=== PATIENT | female | born 1970 | race Caucasian/White ===

== ENCOUNTER 2017-09-23 10:43 | Emergency (ER) | payer BC, OTHER ==
[~2017-09-23] VITALS: Ht 170.2 cm; Wt 92.5 kg
[2017-09-23 10:52] VITALS: TEMP 36.7; Ht 170.2 cm; Wt 92.5 kg
[2017-09-23] MEDS ORDERED: CHOL1000 PO (11:05)
[2017-09-23] MEDS ORDERED: MINO100C22 PO (11:05)
[2017-09-23] MEDS ORDERED: PRLSR20 PO (11:05)
[2017-09-23] MEDS ORDERED: SERT-234 PO (11:05)
[2017-09-23] MEDS ORDERED: DIPHTHERIA/TETANUS/PERTUSSIS 0.5 ML SYR/VIAL IM. ONE (11:15)
--- NOTE | 2017-09-23 13:08 | DIAGNOSTIC IMAGING REPORT ---
L KNEE 3 VIEWS CLINICAL HISTORY: Left knee pain status post trauma COMPARISON: None. DISCUSSION: No fractures of the distal femur or tibia are visualized. There is an avulsion fracture of the proximal fibular tip. This is associated with additional injury to the knee, most commonly cruciate ligament tears. An MRI should be considered in follow-up, as deemed clinically indicated. IMPRESSION: 1. Avulsion fracture of the proximal fibular tip. This has a high association with additional injuries to the knee. As deemed clinically indicated, an MRI could be obtained in follow-up. Electronically signed by: Ish Rutledge M.D. 09/23/2017 1:07 PM Dictated Date/Time: 09/23/2017 1:03 PM
[2017-09-23] MEDS ORDERED: IBUPROFEN 600 MG TAB PO STA (13:34)
[2017-09-23 14:29] VITALS: BP 132/87; PULSE 69; O2SAT 98
--- NOTE | 2017-09-23 14:56 | EMERGENCY ROOM VISIT NOTE ---
History First contact with patient: 11:00 Chief Complaint: LEG PAIN,LEG INJURY Stated Complaint: CANNOT BEND LEFT LEG, FELL DOWN STEPS History of Present Illness The patient is a 47 year old female who presents to the Emergency Room with complaints of left knee/upper leg pain after she fell down several steps in her home this morning. The patient was walking into her basement to let her dog inside when she fell. The patient denies any head injury, neck pain, back pain , abdominal pain, chest pain or shortness of breath. She reports that her leg and knee pain is worsened when she tries to bend the knee, and finds it very painful with weightbearing. She denies any lower back pain, hip pain or ankle pain. She rates her discomfort a 5 out of 10. Patient is uncertain of his last tetanus immunization. She does report a cut to her right palm as well. Review of Systems 10 system review was performed and was negative except for pertinent positives and negatives as indicated in history of present illness Past Medical/Surgical History Medical Problems: (1) Depressive Disorder Nec (2) Hyperlipidemia, Unspecified Surgical Problems: (1) History of tubal ligation Family History FH: cancer FH: diabetes mellitus FH: hypertension FH: lung disease Social History Smoking Status: Never Smoker Alcohol Use: none Marital Status: Housing Status: lives with family Occupation Status: employed Current/Historical Medications Scheduled Cholecalciferol (Vitamin D3), 3,000 UNITS PO DAILY Minocycline (Minocin), 100 MG PO DAILY Omeprazole (Prilosec), 20 MG PO DAILY Sertraline (Zoloft), 100 MG PO DAILY Physical Exam Vital Signs Date Time Temp Pulse Resp B/P (MAP) Pulse Ox O2 Delivery O2 Flow Rate FiO2 09/23/17 14:29 69 13 132/87 98 09/23/17 12:59 74 16 142/89 98 09/23/17 10:52 36.7 75 18 146/93 98 Room Air Physical Exam CONSTITUTIONAL: Healthy and well nourished. Alert and oriented X 3 with positive affect. Patient appears in mild discomfort. HEENT: Normocephalic, atraumatic. Pupils equal, round and reactive. NECK: Full active range of motion without discomfort. RESPIRATORY: Clear to auscultation bilaterally with no wheezing, crackles, rhonchi or stridor. Deep breathing does not cause any discomfort. CARDIOVASCULAR: Regular rate and rhythm with no murmurs, rubs or gallops. GASTROINTESTINAL: Bowel sounds present in all quadrants. Soft and nontender to palpation. MUSCULOSKELETAL: Examination of the left knee/lateral proximal leg shows edema and ecchymosis. The patient has no open wounds on the leg. She has no focal tenderness over the medial or lateral joint line. She is tender over the proximal fibula region. No obvious joint effusion. Range of motion was deferred because of patient discomfort. Pedal pulses are intact. Examination of the right palm/hypothenar region shows a 3 cm partial dermal thickness laceration that is well approximated. No active bleeding or hematoma formation. INTEGUMENTARY: No rash or other significant dermatologic conditions noted. NEUROLOGIC: Extremities are sensory intact. Medical Decision & Procedures ER Provider Diagnostic Interpretation: My interpretation of left knee x-rays shows an avulsion fracture of the proximal fibular process. Radiologist report is as follows: L KNEE 3 VIEWS CLINICAL HISTORY: Left knee pain status post trauma COMPARISON: None. DISCUSSION: No fractures of the distal femur or tibia are visualized. There is an avulsion fracture of the proximal fibular tip. This is associated with additional injury to the knee, most commonly cruciate ligament tears. An MRI should be considered in follow-up, as deemed clinically indicated. IMPRESSION: 1. Avulsion fracture of the proximal fibular tip. This has a high association with additional injuries to the knee. As deemed clinically indicated, an MRI could be obtained in follow-up. Medications Administered Medications (Trade) Dose Ordered Sig/Francia Route Start Time Stop Time Status Last Admin Dose Admin Diphtheria/ Pertussis/Tetanus Vacc (Adacel Inj) 0.5 ml ONCE ONCE IM. 09/23/17 11:15 09/23/17 11:16 DC 09/23/17 12:04 0.5 ML Ibuprofen (Motrin Tab) 600 mg NOW STAT PO 09/23/17 13:34 09/23/17 13:36 DC 09/23/17 13:41 600 MG ED Course Patient history and physical exam were performed. Nurse's notes were reviewed. Vital signs were reviewed, showing a blood pressure 146/93. The patient refused any analgesics on initial exam. X-rays of the left knee shows an avulsion of the proximal fibular tip. I did discuss the case further with Dr. Perez, orthopedic surgeon fire controlman today. The patient reports that she has to leave town early tomorrow morning for a business trip over the weekend. Dr. Perez reported that he could see the patient at 2:45 PM. The patient was provided crutches to remain nonweightbearing. She was administered ibuprofen for pain. The patient was administered Adacel IM, and encouraged to keep her wound clean and covered with an antibiotic ointment and dressing until it heals. The patient was happy with plan of care, voiced understanding of all discharge instructions, and rated her discomfort a 4 out of 10 at the conclusion of my exam. Medical Decision Medication Reconcilliation Current Medication List: was personally reviewed by me Blood Pressure Screening Patient's blood pressure: Normal blood pressure Impression Primary Impression: Fracture of left proximal fibula Additional Impression: Laceration of left hand Departure Information Referrals Gabbie Joyce M.D. (PCP) Patient Instructions Community Health Problem Qualifiers Primary Impression: Fracture of left proximal fibula Encounter type: initial encounter Fracture type: closed Fracture morphology : other fracture Qualified Codes: S82.832A - Other fracture of upper and lower end of left fibula, initial encounter for closed fracture Additional Impression: Laceration of left hand Encounter type: initial encounter Foreign body presence: without foreign body Qualified Codes: S61.412A - Laceration without foreign body of left hand , initial encounter
== END 2017-09-23 14:30 | disposition home or self-care (01) ==
LOC: C.EDB 10:45 → C.EDD 14:30
DX: S82.832A Other fracture of upper and lower end of left fibula, initial encounter for closed fracture (principal); S61.411A Laceration without foreign body of right hand, initial encounter; W10.9XXA Fall (on) (from) unspecified stairs and steps, initial encounter; Z23 Encounter for immunization; F32.9 Major depressive disorder, single episode, unspecified; E78.5 Hyperlipidemia, unspecified; Z83.3 Family history of diabetes mellitus; Z82.49 Family history of ischemic heart disease and other diseases of the circulatory system; Z83.6 Family history of other diseases of the respiratory system

== ENCOUNTER → 2017-09-29 | Outpatient (CLI) | payer OTHER ==
[~2017-09-29] MED LIST: CHOL1000 PO; MINO100C22 PO; PRLSR20 PO; SERT-234 PO
--- NOTE | 2017-09-29 15:02 | DIAGNOSTIC IMAGING REPORT ---
MRI OF THE LEFT KNEE WITHOUT CONTRAST CLINICAL HISTORY: Left knee pain following injury. Avulsion fracture of the proximal lateral tibia/fibula. COMPARISON STUDY: Left knee radiographs September 23, 2017. TECHNIQUE: Utilizing a 1.5 Sammi magnet and dedicated coil, multiplanar, multiecho imaging of the left knee was performed without intravenous or intraarticular contrast. FINDINGS: Note is made of an acute minimally displaced proximal left fibular fracture. There is moderate marrow edema. There is moderate edema within the adjacent soft tissues as well as small amount of fluid within the proximal tibiofibular syndesmosis. There is focal moderate edema within the posterior lateral aspect of the medial tibial plateau. An associated fracture is not identified at this site. Note is made of a 2.4 x 1.5 cm T2 hyperintense lobulated proximal left tibial lesion which suggests an enchondroma. The anterior and posterior cruciate ligaments are intact. The fibular collateral ligament is intact. The popliteus is intact. There is edema along the medial and lateral aspects of the medial collateral ligament. The ligament itself appears intact. There is no joint effusion. No meniscal tear is identified. There is moderate patellofemoral chondrosis. There is minimal chondrosis within the medial and lateral compartments. IMPRESSION: 1. Acute minimally displaced fibular head fracture. Moderate adjacent edema, including intramuscular edema and small amount of fluid within the proximal tibiofibular syndesmosis which could reflect syndesmotic injury. 2. Intact ACL. 3. Grade I/II MCL sprain. No full-thickness MCL tear. 4. Moderate focal edema within the posterolateral aspect of the medial tibial plateau which suggests a bone contusion. 5. No meniscal tear. 6. 2.4 cm T2 hyperintense lobulated proximal left tibial lesion which suggests an enchondroma. Electronically signed by: Zi Carranza M.D. 09/29/2017 3:01 PM Dictated Date/Time: 09/29/2017 12:07 PM
== END | disposition home or self-care (01) ==
LOC: C.MRI 10:45
PROVIDERS: ATTEND Orthopaedic Surgery Sports Medicine
DX: S82.832A Other fracture of upper and lower end of left fibula, initial encounter for closed fracture (principal); X58.XXXA Exposure to other specified factors, initial encounter